=== PATIENT | female | born 1990 | race Caucasian/White ===

== ENCOUNTER 2020-01-19 21:07 | Emergency (ER) | payer MEDICAID, SELFPAY ==
[2020-01-19 21:09] VITALS: BP 96/58; PULSE 121; RESP 14; TEMP 37.3; O2SAT 96; BMI 19.3
[2020-01-19 22:09] LABS: Bacteria 0 SEEN /hpf (None Seen); Mucous, Urine 0 SEEN /hpf (<or=2+); Red Blood Cells-Urine 0 SEEN /hpf (0-5); Squamous Epithelial Cells - UA 0 SEEN /hpf (5-10); White Blood Cells 0 SEEN /hpf (0-5)
[2020-01-19 22:10] LABS: Color, Urine Yellow (Yellow); Glucose, Dipstick Normal (Normal); Ketone-Dipstick Negative (Negative); Leukocyte Esterase-Dipstick Negative /ul (Negative); Nitrite-Dipstick Negative (Negative); Occult Blood-Urine Negative /ul (Negative); Protein-Dipstick Negative (Negative); Specific Gravity, Urine 1.005 (1.002-1.030); Urine Bilirubin Dipstick Negative (Negative); Urine Clarity Clear (Clear); Urine Urobilinogen Normal (Normal); Urine pH 6.5 (5.0 - 8.0)
[2020-01-19] MEDS: Naproxen 500 MG Tablet PO (22:12)
[2020-01-19 22:23] LABS: Internal QC Validated? YES +Cl - CLEAR BKGD; Pregnancy, Urine Negative Negative
--- NOTE | 2020-01-19 23:04 | ED.RN ---
PT ADMITS TO HAVING OCCASIONAL BOUTS OF DEPRESSION, DENIES CURRENT SUICIDAL THOUGHTS.
--- NOTE | 2020-01-19 23:14 | ED.DCSUM_ITS ---
History of Present Illness Chief Complaint: Ear Problem Detail of Chief Complaint: Ear pain, abdominal cramping, feet hurt Informant: Patient Onset: Days Narrative: Patient presents with multiple complaints. Patient presents with right ear pain for the past 2 or 3 days. She has had some recent cold symptoms and reports having a low-grade fever. She reports cough but no sputum. She does report some wheezing. She is a smoker. She also complains of some abdominal cramping that is been intermittent. Her last menstrual cycle was in late December. She does have a history of ovarian cyst but does not believe this pain feels similar. She denies dysuria or hematuria. She also states both of her feet hurt. She states that been walking a lot as she is currently homeless and trying to find a place to live. She has been staying at the [facility]. - Past Medical History (1) Smoker Status: Chronic Comment: F17.200 Past Medical History - Allergies and Home Meds Allergies/Adverse Reactions: Allergies clindamycin HCl [From Cleocin] Adverse Reaction (Verified 01/19/20 21:08) Swelling clindamycin palmitate HCl [From Cleocin] Adverse Reaction (Verified 01/19/20 21:08) Swelling clindamycin phosphate [From Cleocin] Adverse Reaction (Verified 01/19/20 21:08) Swelling Prior records reviewed: Yes Lives: Homeless Smoking Status: Current every day smoker Review of Systems General: Reports: Fever, Subjective. Denies: Chills Eyes: Denies: Visual changes - bilaterally ENT: Reports: Right ear pain. Denies: Rhinorrhea, Sore throat Cardiovascular: Denies: Chest pain Respiratory: Reports: Cough. Denies: Dyspnea, Sputum Gastrointestinal: Denies: Abdominal pain, Nausea, Vomiting, Diarrhea Genitourinary: Denies: Dysuria Musculoskeletal: Reports: Extremity Pain. Denies: Neck pain, Back pain Skin: Denies: Rash Neurological: Denies: Headache Hematologic: Denies: Easy bruising Physical Exam Vital Signs/Narrative: Vital Signs Temp Pulse Resp BP Pulse Ox 01/19/20 21:09 99.1 F 121 H 14 96/58 L 96 Inital Vital Signs reviewed: Yes General: Well nourished, Well developed Head: Normocephalic Eyes: Perrl, EOMI ENT: Moist mucous membranes, TM's clear Neck: Supple Cardiovascular: Regular rate, Regular rhythm Respiratory: No distress, CTA bilaterally Abdomen: Soft, Nontender, Normal bowel sounds Back: Nontender Extremities: Nontender Skin: Normal color Neurological: Alert, Oriented x3 Psychological: Normal affect Diagnostic/Tx/Re-eval Laboratory Results 01/19/20 01/19/20 21:50 21:50 Urine Color Yellow Urine Clarity Clear Urine pH 6.5 Ur Specific [place] 1.005 Urine Protein Negative Urine Glucose (UA) Normal Urine Ketones Negative Urine Occult Blood Negative Urine Nitrite Negative Urine Bilirubin Negative Urine Urobilinogen Normal Ur Leukocyte Esterase Negative Urine RBC 0 SEEN Urine WBC 0 SEEN Ur Squamous Epith Cells 0 SEEN Urine Bacteria 0 SEEN Urine Mucus 0 SEEN Urine Test Negative - Medical Decision Making Patient was given naproxen for pain. On repeat evaluation she is resting comfortably. Test results are discussed with her. She will be instructed to take Tylenol or ibuprofen as needed for pain. ED Disposition - Plan for ED Patient: Disposition: Home or Assisted Living Diagnosis: URI (upper respiratory infection) Instructions: URI, Viral, No Abx (Adult)
[2020-01-20 00:03] VITALS: PULSE 115; RESP 19; O2SAT 97
== END 2020-01-20 00:05 | disposition home or self-care (01) ==
PROVIDERS: Emergency Provider Emergency Medicine; PCP Family Medicine
DX: J06.9 Acute upper respiratory infection, unspecified (principal); R10.9 Unspecified abdominal pain; H92.01 Otalgia, right ear; F17.200 Nicotine dependence, unspecified, uncomplicated; Z59.0 Homelessness; Z88.1 Allergy status to other antibiotic agents
CPT/HCPCS: 81001; 81025; 99282

== ENCOUNTER 2020-01-23 18:37 | Emergency (ER) | payer MEDICAID, SELFPAY ==
[2020-01-23 18:39] VITALS: BP 106/73; PULSE 95; RESP 16; TEMP 36.6; O2SAT 97; BMI 20.5
--- NOTE | 2020-01-23 18:48 | ED.VISSUMM ---
- ER Visit Summary Date of Service: 01/23/20 Chief Complaint: Visual and auditory hallucinations History of Present Illness: The patient is a 29 F who presents with visual and auditory hallucinations that have been getting worse over the past week. Patient states these wax and wane over the week. Patient states nothing makes it better or worse. Patient does admit to some feelings of depression and hopelessness. Patient denies any changes in her eating and sleeping habits. Patient denies any suicidal or homicidal ideations. Patient denies any suicidal plan. Patient states she hears voices but they are not telling her to do anything. Patient states she knows she is seeing things that are not there but does not specifically say what these hallucinations look like. Physical Examination: Vital signs are stable. Patient is afebrile. Patient is in no acute distress. Oral mucosa is pink and moist. Neck is supple. Trachea is midline. There is no JVD noted. Heart was regular rate and rhythm. Lungs are clear and equal bilaterally. Abdomen is soft. Bowel sounds are normal. There is mild lower abdominal tenderness. There is no rebound or guarding noted. Skin is warm dry. Cranial nerves II through XII are intact. There are no focal motor or sensory deficits noted. Extremities are intact. There is no calf tenderness or edema. Test Results: CBC and basic metabolic profile were obtained were within normal limits. Urinalysis does not show any evidence of urinary tract infection. Serum hCG was negative. Urine tox screen was positive for cannabinoids. Serum alcohol level was normal. Emergency Department Course and Treatment: Case was discussed with social work. She was in to evaluate the patient and felt the patient will be best served in a psychiatric facility. Transfer arrangements were made. Patient will be transferred to psychiatric facility. [place] slip was placed on the chart. Patient understood and was agreeable with the plan. All questions were answered. Disposition: Transfer to psychiatric facility Impression: 1. Depression 2. Visual and auditory hallucinations This note was generated with Bandspeed dictation software. It may contain incorrect words, spelling, and punctuation that were not noted in review of the chart prior to signing ED Disposition - Plan for ED Patient: Disposition: Psychiatric Hospital or Unit Diagnosis: Depression, Hallucinations Referrals: Chi Youssef DO [COURTESY STAFF PHYSICIAN] -
[2020-01-23 18:57] LABS: Color, Urine Yellow (Yellow); Glucose, Dipstick Normal (Normal); Ketone-Dipstick 5 mg/dl (Negative); Leukocyte Esterase-Dipstick Negative /ul (Negative); Nitrite-Dipstick Negative (Negative); Occult Blood-Urine Negative /ul (Negative); Protein-Dipstick Negative (Negative); Urine Clarity Sl. Cloudy (Clear); Urine Urobilinogen 4 mg/dl (Normal)
[2020-01-23 19:04] LABS: Absolute Lymphocyte Count 1.92 X10^3/uL (0.83-4.51); Absolute Neutrophil Count 1.9 X10^3/uL (2.0-7.7); Basophil# 0.01 X10^3/uL; Basophil% 0.2 % (0-1); Eosinophil# 0.01 X10^3/uL; Eosinophils% 0.2 % (0-5); Hematocrit 40.4 % (37-47); Hemoglobin 13.8 g/dL (12.0-15.0); Internal QC Validated? YES +Cl - CLEAR BKGD; Lymphocyte # 1.92 X10^3/ul (4.0); Lymphocyte % 45.9 % (19-41); Mean Corp Hgb Conc 34.2 g/dL (32-36); Mean Corpuscular Hgb 29.6 pg (27.0-32.0); Mean Corpuscular Volume 86.5 fL (81-99); Mean Platelet Vol. 10.8 fl (6.2-12.0); Monocyte# 0.31 X10^3/uL; Monocyte% 7.4 % (0-10); NRBC Flagged by Analyzer 0 % (0-5); Neutrophil # 1.92 X10^3/uL (2.7-7.7); Neutrophil % 46.1 % (47-70); POSITIVE MORPHOLOGY YES; Platelet Count 174 K/mm3 (150-450); RBC Distribution Width CV 11.4 % (11.6-14.6); RBC Distribution Width SD 36.1 fl (35.1-43.9); Red Blood Count 4.67 M/mm3 (4.2-5.4); White Blood Count 4.2 K/mm3 (4.4-11.0)
[2020-01-23 19:09] LABS: Urine Bilirubin Dipstick 1 mg/dL (Negative)
[2020-01-23 19:10] LABS: Bacteria 1+ /hpf (None Seen); Mucous, Urine 1+ /hpf (<or=2+); Red Blood Cells-Urine 0-5 SEEN /hpf (0-5); Squamous Epithelial Cells - UA 5-10 SEEN /hpf (5-10); White Blood Cells 0-5 SEEN /hpf (0-5)
[2020-01-23 19:13] LABS: Amphetamine Urine VISTA NEGATIVE (<1000 ng/mL); Barbiturate Urine VISTA NEGATIVE (< 200 ng/mL); Benzodiazepine Urine VISTA NEGATIVE (< 200 ng/mL); Cocaine Urine VISTA NEGATIVE (< 300 ng/mL); Ecstacy Urine VISTA NEGATIVE (< 500 ng/mL); Methadone Urine VISTA NEGATIVE (< 300 ng/mL); PCP Urine VISTA NEGATIVE (< 25 ng/mL); THC Urine VISTA POSITIVE (< 50 ng/mL); Vista UDS pH Range 6
[2020-01-23 19:15] LABS: Pregnancy, Serum, hCG Quali. NEGATIVE Negative
[2020-01-23 19:18] LABS: Anion Gap 7 (5-15); BUN 9 mg/dL (7-18); BUN/Creat Ratio 12.5 RATIO (10-20); Calcium,Total 8.3 mg/dL (8.5-10.1); Chloride 108 mmol/L (98-107); Creatinine, Serum 0.72 mg/dL (0.55-1.02); EST Glomerular Filtration Rate 102 mL/min (>60); Est Glom Filt Rate - Afr Amer 123 mL/min (>60); Glucose 90 mg/dL (74-106); Potassium 3.2 mmol/L (3.5-5.1); Sodium Level 144 mmol/L (136-145)
[2020-01-23 19:20] LABS: Differential Indicated SCAN CRITERIA MET
[2020-01-23 19:24] LABS: Alcohol, Blood (Medical)-Serum < 3.0 mg/dL
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
--- NOTE | 2020-01-23 19:50 | CM.ED ---
SOCIAL WORK PATIENT GAVE PERMISSION FOR THIS WORKER TO CALL AND SPEAK WITH HER MOTHER, DU REED [phone]. LEFT MESSAGE, AWAITING CALL BACK.
[2020-01-23 19:54] LABS: Differential Comment SCANNED
--- NOTE | 2020-01-23 20:23 | CM.ED ---
SOCIAL WORK REFERRAL FAXED AND CALLED TO [facility]. AWAITING ACCEPTANCE. Melba RESTREPO, CAFE COOK, DURALUMIN MECHANIC.
--- NOTE | 2020-01-23 20:30 | CM.ED ---
SOCIAL WORK RECEIVED CALL BACK FROM PATIENT'S MOTHER, DU. UPDATED ON PATIENT'S STATUS AND REQUESTED INFORMATION ON PATIENT'S MENTAL HEALTH HISTORY. PER DU, IN REGARDS TO AUDITORY AND VISUAL HALLUCINATIONS, THAT IS NOT NORMAL FOR [facility]. MOTHER REPORTS PATIENT WAS ADMITTED TO [facility] AT ONE TIME AFTER BEING FOUND OUT WALKING HALF NAKED. MOTHER REPORTS PATIENT DOES HAVE HISTORY OF METH USE. MOTHER STATES PATIENT WAS STAYING WITH HER BROTHER FOR A FEW DAYS AND THEN BROTHER TOOK HER TO [facility] HIS [place] WOULD NOT ALLOW PATIENT TO STAY IN THE HOME. MOTHER CONCERNED WITH PATIENT'S MENTAL STATUS STATING SHE NEEDS HELP. MOTHER RESIDES IN [place] AND STATES PLANS TO MOVE BACK TO [place] IN A FEW MONTHS. MOTHER FEELS PATIENT WOULD BENEFIT FROM HOSPITALIZATION. CALL TO [facility] TO UPDATE ON THE ABOVE. MOHSEN WAHL, ESOL TEACHER.
--- NOTE | 2020-01-23 20:55 | CM.ED ---
SOCIAL WORK CALL FROM [facility], PATIENT ACCEPTED BY DR. KEATING TO THE ABU. NURSE TO CALL REPORT TO . [employer] TO SET UP TRANSPORT. COPY OF P[employer] SLIP TO BE FAXED PER REQUEST. Melba RESTREPO, MIXER OPERATOR RAW SALT, STEREOTYPER HELPER.
[2020-01-23 21:27] VITALS: BP 109/71; PULSE 81; RESP 16; O2SAT 99
== END 2020-01-23 21:51 ==
PROVIDERS: Emergency Provider Emergency Medicine
DX: F32.9 Major depressive disorder, single episode, unspecified (principal); F41.9 Anxiety disorder, unspecified; R44.0 Auditory hallucinations; R44.1 Visual hallucinations; Z72.0 Tobacco use
CPT/HCPCS: 80048; 80307; 80320; 81001; 84703; 85025; 99285; G0480

== ENCOUNTER 2020-10-11 13:01 | Emergency (ER) | payer MEDICAID, SELFPAY ==
[2020-10-11 13:02] VITALS: BP 118/92; PULSE 142; TEMP 36.6; BMI 20.7
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
[2020-10-11 13:31] LABS: Absolute Lymphocyte Count 2.35 X10^3/uL (0.83-4.51); Absolute Neutrophil Count 10.3 X10^3/uL (2.0-7.7); Basophil# 0.03 X10^3/uL; Basophil% 0.2 % (0-1); Eosinophil# 0.01 X10^3/uL; Eosinophils% 0.1 % (0-5); Hematocrit 38.9 % (37-47); Hemoglobin 13.7 g/dL (12.0-15.0); Lymphocyte # 2.35 X10^3/ul (4.0); Lymphocyte % 17.2 % (19-41); Mean Corp Hgb Conc 35.2 g/dL (32-36); Mean Corpuscular Hgb 29.7 pg (27.0-32.0); Mean Corpuscular Volume 84.2 fL (81-99); Mean Platelet Vol. 11.1 fl (6.2-12.0); Monocyte# 0.99 X10^3/uL; Monocyte% 7.2 % (0-10); NRBC Flagged by Analyzer 0 % (0-5); Neutrophil # 10.26 X10^3/uL (2.7-7.7); Platelet Count 320 K/mm3 (150-450); RBC Distribution Width CV 11.9 % (11.6-14.6); Red Blood Count 4.62 M/mm3 (4.2-5.4); White Blood Count 13.7 K/mm3 (4.4-11.0)
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
[2020-10-11 13:55] LABS: Internal QC Validated? YES +Cl - CLEAR BKGD; Pregnancy, Serum, hCG Quali. NEGATIVE Negative
[2020-10-11 14:00] LABS: Anion Gap 7 (5-15); BUN 21 mg/dL (7-18); BUN/Creat Ratio 21.1 RATIO (10-20); Calcium,Total 9.5 mg/dL (8.5-10.1); Chloride 104 mmol/L (98-107); Creatinine, Serum 0.99 mg/dL (0.55-1.02); EST Glomerular Filtration Rate 70 mL/min (>60); Est Glom Filt Rate - Afr Amer 84 mL/min (>60); Glucose 78 mg/dL (74-106); Potassium 3.5 mmol/L (3.5-5.1); Sodium Level 138 mmol/L (136-145)
[2020-10-11] MEDS: LORazepam 2 MG/ML Syringe IM (14:04)
[2020-10-11] MEDS: Ziprasidone IM 20 MG/ML VIAL IM (14:05)
[2020-10-11 14:11] LABS: Alcohol, Blood (Medical)-Serum < 3.0 mg/dL
[2020-10-11 15:27] LABS: Mucous, Urine 0 SEEN /hpf (<or=2+); Red Blood Cells-Urine 0 SEEN /hpf (0-5); White Blood Cells 0 SEEN /hpf (0-5)
[2020-10-11 15:30] VITALS: BP 120/109; PULSE 87; RESP 16; O2SAT 96
[2020-10-11 15:33] LABS: Color, Urine Yellow (Yellow); Glucose, Dipstick Normal (Normal); Ketone-Dipstick 50 mg/dl (Negative); Leukocyte Esterase-Dipstick 25 /ul (Negative); Nitrite-Dipstick Negative (Negative); Occult Blood-Urine Negative /ul (Negative); Protein-Dipstick 15 mg/dl (Negative); Urine Bilirubin Dipstick Negative (Negative); Urine Clarity Clear (Clear); Urine Urobilinogen Normal (Normal)
[2020-10-11 15:57] LABS: Amphetamine Urine VISTA POSITIVE (<1000 ng/mL); Barbiturate Urine VISTA NEGATIVE (< 200 ng/mL); Benzodiazepine Urine VISTA NEGATIVE (< 200 ng/mL); Cocaine Urine VISTA NEGATIVE (< 300 ng/mL); Ecstacy Urine VISTA POSITIVE (< 500 ng/mL); Methadone Urine VISTA NEGATIVE (< 300 ng/mL); PCP Urine VISTA NEGATIVE (< 25 ng/mL); THC Urine VISTA POSITIVE (< 50 ng/mL); Vista UDS pH Range 5
[2020-10-11 16:00] VITALS: BP 102/72; PULSE 81; RESP 16; O2SAT 95
--- NOTE | 2020-10-11 16:08 | CM.ED ---
Social Work Patient medically cleared per Dr. Brandt. Telephone call to [facility] [place]. Referral made. Clinical information faxed. [facility] reports that [facility] has open beds. Denise CONNOLLY, ELICIA
--- NOTE | 2020-10-11 16:39 | NURSING ---
ACCEPTED AT [facility]
[2020-10-11 16:40] LABS: Bacteria 4+ /hpf (None Seen); Squamous Epithelial Cells - UA 0-5 SEEN /hpf (5-10)
--- NOTE | 2020-10-11 16:46 | NURSING ---
[facility] ETA IS 90 MIN
--- NOTE | 2020-10-11 16:56 | CM.ED ---
[facility] by Dr. Man and is to admit to the due diagnosis unit. Nurse to call report to [phone]. Medical team and patient updated. [place] faxed to [facility]. Denise CONNOLLY, ELICIA
[2020-10-11 18:00] VITALS: BP 100/77; PULSE 71; RESP 14; TEMP 36.9; O2SAT 100
[2020-10-11 19:00] VITALS: BP 100/77; PULSE 74; RESP 16; O2SAT 95
== END 2020-10-11 20:00 ==
LOC: ED 13:41
PROVIDERS: Emergency Provider Emergency Medicine
DX: F31.9 Bipolar disorder, unspecified (principal); F41.9 Anxiety disorder, unspecified; F15.10 Other stimulant abuse, uncomplicated; R45.851 Suicidal ideations; F17.200 Nicotine dependence, unspecified, uncomplicated; Z91.19 Patient's noncompliance with other medical treatment and regimen; Z79.899 Other long term (current) drug therapy
CPT/HCPCS: 80048; 80307; 80320; 81001; 84703; 85025; 87426; 96372; 99285; G0480; J3486

== ENCOUNTER 2021-11-20 19:22 | Emergency (ER) | payer MEDICAID, SELFPAY ==
[2021-11-20 19:22] VITALS: BP 107/85; PULSE 107; RESP 16; TEMP 36.3; O2SAT 99; BMI 22.2
--- NOTE | 2021-11-20 20:18 | ED.RN ---
Doctor in with patient and says she is here because she does not feel well. Now patient states she is hearing and seeing things and smoked meth today, which is different from what she told this nurse.
[2021-11-20 20:27] LABS: Bacteria 0 SEEN /hpf (None Seen); Mucous, Urine 0 SEEN /hpf (<or=2+); Red Blood Cells-Urine 0 SEEN /hpf (0-5); White Blood Cells 0 SEEN /hpf (0-5)
--- NOTE | 2021-11-20 20:28 | EDS_ITS ---
HPI History of Present Illness Chief Complaint: Suicidal Informant: patient Narrative Narrative: 31-year-old female states that she is feeling depressed and is having auditory and visual hallucinations. She is an active methamphetamine user. She states that a loose Nations have been present only for couple of days. When asked what is she feeling depressed about she states that she really does not know. I asked her if she seen anybody for it she says yes but then does not understand what I am meeting by you she is seeing a counselor or therapist etc. she told me she did not have a specific plan but told nursing and triage that she considered cutting or overdosing [facility] Medical History (Updated 11/20/21 @ 21:[address] Juno Curran, DO) Methamphetamine abuse Home Medications NK 11/20/21 [History Last Taken Unknown] Allergy/AdvReac Type Severity Reaction Status Date / Time clindamycin HCl AdvReac Swelling Verified 11/20/21 19:27 [From Cleocin] clindamycin palmitate HCl AdvReac Swelling Verified 11/20/21 19:27 [From Cleocin] clindamycin phosphate AdvReac Swelling Verified 11/20/21 19:27 [From Cleocin] Social History Smoking Status: Current some day smoker tobacco type: cigarettes ROS ROS ED Constitutional Constitutional ED: Denies chills or weight loss Eyes Eyes: Denies change in vision or diplopia ENT ENT ED: Denies ear pain, rhinorrhea or sore throat Cardiovascular Cardiovascular: Denies chest pain, orthopnea, palpitations or racing heartbeat Respiratory/Chest Respiratory/Chest: Denies cough, dyspnea or orthopnea Gastrointestinal Gastrointestinal: Denies abdominal pain, diarrhea, nausea or vomiting Genitourinary Genitourinary ED: Denies dysuria, hematuria or urinary frequency Musculoskeletal Musculoskeletal: Denies arthralgias or myalgias Integumentary Denies abscess or rash Neurologic Neurologic: Denies headache(s) or weakness Psychiatric Psychiatric: Reports auditory hallucinations, depression, suicidal thoughts and visual hallucinations; Denies anxiety or suicidal ideation Endocrine Endocrinology: Denies polydipsia, polyphagia or polyuria Allergic/Immunologic Allergic/Immunologic ED: Denies mouth swelling, tongue swelling or urticaria EXAM Physical Exam Const Vital Signs: 11/20/21 19:22 11/20/21 20:42 11/20/21 21:38 Temperature 97.4 F L Temperature Source Temporal Pulse Rate 107 H Respiratory Rate 16 17 17 Blood Pressure 107/85 H Blood Pressure Mean 92 Pulse Ox 99 Oxygen Delivery Method Room Air Positive well nourished and well developed General Appearance ED: well developed HEENT Reports normocephalic, head/scalp atraumatic and moist mucous membranes Eyes PERRL and EOMs intact bilaterally Neck no lymphadenopathy, supple and no JVD Resp normal respiratory effort and clear to auscultation bilaterally Cardio regular rate, regular rhythm and no murmurs GI normal to inspection, nondistended, normoactive bowel sounds and non-tender Palpation: soft Back/Spine no CVA tenderness and normal ROM Extremity normal to inspection General Extremety ED: Negative for edema General Extremity: Negative for edema Neuro oriented x3 and CN's II-XII intact bilaterally Neuro Narrative: Patient having tics and unable to sit still. Sensorium / Orientation: alert Motor Exam: strength 5/5 throughout Psych Psych Narrative: Patient admitting to auditory and visual hallucinations. She admits to being suicidal but does not know why Mood & Affect: depressed; Negative for tearful Thought Content: suicidality Skin no rashes or lesions noted and no wounds MDM MDM MDM Narrative Medical decision making narrative: Patient was more forthcoming with case management. She is telling them about her suicidal ideation and plan. She is voluntarily asking for psychiatric admission. Lab Data Attestation: I reviewed the patient's lab results. Labs: Laboratory Results - last 24 hr 11/20/21 11/20/21 11/20/21 19:50 19:50 20:08 WBC Cancelled Corrected WBC Cancelled RBC Cancelled Hgb Cancelled Hct Cancelled MCV Cancelled MCH Cancelled MCHC Cancelled RDW Std Deviation Cancelled RDW Coeff of Natasha Cancelled Plt Count Cancelled MPV Cancelled Immature Gran % (Auto) Cancelled Neut % (Auto) Cancelled Lymph % (Auto) Cancelled [place] % (Auto) Cancelled Eos % (Auto) Cancelled Baso % (Auto) Cancelled Absolute Neuts (auto) Cancelled Absolute Lymphs (auto) Cancelled Total Counted Cancelled Neutrophils % (Manual) Cancelled Band Neutrophils % Cancelled Lymphocytes % (Manual) Cancelled Monocytes % (Manual) Cancelled Eosinophils % (Manual) Cancelled Basophils % (Manual) Cancelled Metamyelocytes % Cancelled Myelocytes % Cancelled Promyelocytes % Cancelled Blast Cells % Cancelled Plasma Cell % (Manual) Cancelled Other Cells % Cancelled Nucleated RBC % Cancelled Nucleated RBCs/100 WBC Cancelled Differential Comment Cancelled Diff Path Review Cancelled Hypersegmented Neuts Cancelled Atypical Lymphocytes Cancelled Reactive Lymphocytes Cancelled Smudge Cells Cancelled Toxic Granulation Cancelled Toxic Vacuolation Cancelled Dohle Bodies Cancelled John Rods Cancelled Platelet Estimate Cancelled Plt Morphology Comment Cancelled RBC Morphology Cancelled Polychromasia Cancelled Hypochromasia Cancelled Poikilocytosis Cancelled Basophilic Stippling Cancelled Anisocytosis Cancelled Microcytosis Cancelled Macrocytosis Cancelled Spherocytes Cancelled Sickle Cells Cancelled Target Cells Cancelled Tear Drop Cells Cancelled Ovalocytes Cancelled Stomatocytes Cancelled Wahl-Navarro Bodies Cancelled Lopeno Cells Cancelled Bite Cells Cancelled Crenated Cell Cancelled Acanthocytes (Spur) Cancelled Rouleaux Cancelled Schistocytes Cancelled Sodium Potassium Chloride Carbon Dioxide Anion Gap BUN Creatinine Estim Creat Clear Calc Est GFR (MDRD) Af Amer Est GFR (MDRD) Non-Af BUN/Creatinine Ratio Glucose Calcium Total Bilirubin AST ALT Alkaline Phosphatase Total Protein Albumin Globulin Albumin/Globulin Ratio Urine Color Yellow Urine Clarity Sl. Cloudy Urine pH 7.0 Ur Specific [place] 1.015 Urine Protein Negative Urine Glucose (UA) Normal Urine Ketones 5 H Urine Occult Blood Negative Urine Nitrite Negative Urine Bilirubin Negative Urine Urobilinogen Normal Ur Leukocyte Esterase Negative Urine RBC 0 SEEN Urine WBC 0 SEEN Ur Squamous Epith Cells 0-5 SEEN Amorphous Sediment 1+ Urine Bacteria 0 SEEN Urine Mucus 0 SEEN Urine Test Negative Urine Opiates Screen NEGATIVE Urine Methadone Screen NEGATIVE Ur Barbiturates Screen NEGATIVE Ur Phencyclidine Scrn NEGATIVE Ur Amphetamines Screen POSITIVE H U Methamphetamin-MDMA POSITIVE H U Benzodiazepines Scrn NEGATIVE Urine Cocaine Screen NEGATIVE U Cannabinoids Screen NEGATIVE Ur Drug Screen Comment Ethyl Alcohol 11/20/21 11/20/21 11/20/21 20:08 20:08 21:07 WBC 5.7 Corrected WBC RBC 4.72 Hgb 14.0 Hct 39.5 MCV 83.7 MCH 29.7 MCHC 35.4 RDW Std Deviation 37.9 RDW Coeff of Natasha 12.7 Plt Count 286 MPV 11.5 Immature Gran % (Auto) 0.200 Neut % (Auto) 50.1 Lymph % (Auto) 40.3 [place] % (Auto) 8.8 Eos % (Auto) 0.4 Baso % (Auto) 0.2 Absolute Neuts (auto) 2.8 Absolute Lymphs (auto) 2.28 Total Counted Neutrophils % (Manual) Band Neutrophils % Lymphocytes % (Manual) Monocytes % (Manual) Eosinophils % (Manual) Basophils % (Manual) Metamyelocytes % Myelocytes % Promyelocytes % Blast Cells % Plasma Cell % (Manual) Other Cells % Nucleated RBC % 0 Nucleated RBCs/100 WBC Differential Comment Diff Path Review Hypersegmented Neuts Atypical Lymphocytes Reactive Lymphocytes Smudge Cells Toxic Granulation Toxic Vacuolation Dohle Bodies John Rods Platelet Estimate Plt Morphology Comment RBC Morphology Polychromasia Hypochromasia Poikilocytosis Basophilic Stippling Anisocytosis Microcytosis Macrocytosis Spherocytes Sickle Cells Target Cells Tear Drop Cells Ovalocytes Stomatocytes Wahl-Navarro Bodies [place]o Cells Bite Cells Crenated Cell Acanthocytes (Spur) Rouleaux Schistocytes Sodium 142 Potassium 4.1 Chloride 113 H Carbon Dioxide 25.0 Anion Gap 4 L BUN 18 Creatinine 0.88 Estim Creat Clear Calc 72.96 Est GFR (MDRD) Af Amer 97 Est GFR (MDRD) Non-Af 80 BUN/Creatinine Ratio 20.5 H Glucose 89 Calcium 9.1 Total Bilirubin 0.30 AST 23 ALT 15 Alkaline Phosphatase 76 Total Protein 7.4 Albumin 3.5 Globulin 3.9 Albumin/Globulin Ratio 0.9 Urine Color Urine Clarity Urine pH Ur Specific [place] Urine Protein Urine Glucose (UA) Urine Ketones Urine Occult Blood Urine Nitrite Urine Bilirubin Urine Urobilinogen Ur Leukocyte Esterase Urine RBC Urine WBC Ur Squamous Epith Cells Amorphous Sediment Urine Bacteria Urine Mucus Urine Test Urine Opiates Screen Urine Methadone Screen Ur Barbiturates Screen Ur Phencyclidine Scrn Ur Amphetamines Screen U Methamphetamin-MDMA U Benzodiazepines Scrn Urine Cocaine Screen U Cannabinoids Screen Ur Drug Screen Comment Ethyl Alcohol < 3.0 EKG Initial EKG: Attestation: I personally reviewed and interpreted this EKG as follows: Comments: Normal sinus rhythm with a ventricular rate of 91 bpm. Discharge Plan Triage Chief Complaint: Suicidal ED Provider: Juno Curran Dx/Rx/DC Orders Clinical Impression: Methamphetamine abuse, Depression, Suicidal ideation Prescriptions: No Action NK RF: 0 Primary Care Provider: Care Physician,No Primary Referrals: Care Physician,No Primary [Primary Care Provider] - Disposition Disposition: Psychiatric Hospital or Unit
--- NOTE | 2021-11-20 20:30 | CM.ED ---
SOCIAL WORK ASSESSMENT Referral Source: Dr. Curran Reason for Consult: Suicidal ideation Chief Compliant: Patient presents to [facility] ER for suicidal ideation, substance abuse. Marital/Social History: Single Living Situation: Lives with boyfriend Support/Resources: ?I don?t remember who I see.? History: None Education and Employment History: 8th Grade, unemployed Mental Health Treatment/History: Depression. Patient reports prescribed medication, however, has not been taking medications. Patient unable to recall who she follows with. Triggers/Stressors: fighting with boyfriend, social stressors. Coping Skills: None Abuse Issues: Patient denies any history of emotional, physical, or sexual abuse. Substance Abuse History: Patient admits to use of meth. Last use was earlier today. Risk to Self/Others: Suicidal- Patient admits to suicidal ideation. Patient states ?I would take pills.? Patient denies any prior history of attempts. Homicidal- Patient denies homicidal ideation. Mental Status Exam: Orientation- A&Ox3 Memory: fair Appearance/General Behavior: disheveled, calm Mood/Affect: flat, depressed Communication Pattern: responds to questions Thought Process: auditory hallucinations General Intellectual Functioning: Average Judgement: poor Insight: poor Assessment: Met with patient in room. Introduced role and reason for referral. Patient states has been more depressed lately and is ?fighting with my boyfriend.? Patient reports does not have coping skills and self-medicates with meth. Patient reports last use was earlier today. Patient reports suicidal ideation. Patient believes would benefit from hospitalization. Collaboration with Dr. Curran, plan for inpatient dual diagnosis. This worker to facilitate placement. Plan: Referral to inpatient psych: dual diagnosis Melba Rdz, HRIS MANAGER, [employer]IN [employer]ER
--- NOTE | 2021-11-20 20:35 | EKG12_ITS ---
Test Reason : MENTAL HEALTH Blood Pressure : / mmHG Vent. Rate : 091 BPM Atrial Rate : 091 BPM P-R Int : 144 ms QRS Dur : 082 ms QT Int : 336 ms P-R-T Axes : 067 059 048 degrees QTc Int : 413 ms Normal sinus rhythm Normal ECG Confirmed by SAADIA AMIN, EDWARD ([id number]), editorial project manager CARLENE STEWARD ([id number]) on 11/21/2021 11:12:16 AM Referred By: SAUL Confirmed By:EDWARD ZEE MD
[2021-11-20 20:42] VITALS: RESP 17
[2021-11-20 20:42] LABS: Color, Urine Yellow (Yellow); Glucose, Dipstick Normal (Normal); Ketone-Dipstick 5 mg/dl (Negative); Leukocyte Esterase-Dipstick Negative /ul (Negative); Nitrite-Dipstick Negative (Negative); Occult Blood-Urine Negative /ul (Negative); Protein-Dipstick Negative (Negative); Specific Gravity, Urine 1.015 (1.002-1.030); Urine Bilirubin Dipstick Negative (Negative); Urine Clarity Sl. Cloudy (Clear); Urine Urobilinogen Normal (Normal)
[2021-11-20 20:52] LABS: Amorphous Sediment 1+; Squamous Epithelial Cells - UA 0-5 SEEN /hpf (5-10)
[2021-11-20 20:53] LABS: Internal QC Validated? YES +Cl - CLEAR BKGD; Pregnancy, Urine Negative Negative
[2021-11-20 20:57] LABS: ALB/GLOB Ratio 0.9 RATIO (0.9-2.4); AST(SGOT) 23 U/L (15-37); Alanine Aminotransfer ALT/SGPT 15 U/L (13-56); Albumin, Serum 3.5 g/dL (3.2-5.0); Alkaline Phosphatase 76 U/L (45-117); Anion Gap 4 (5-15); BUN 18 mg/dL (7-18); BUN/Creat Ratio 20.5 RATIO (10-20); Calcium,Total 9.1 mg/dL (8.5-10.1); Chloride 113 mmol/L (98-107); Creatinine, Serum 0.88 mg/dL (0.55-1.02); EST Glomerular Filtration Rate 80 mL/min (>60); Est Glom Filt Rate - Afr Amer 97 mL/min (>60); Estimated Creatinine Clearance 72.96 ml/min; Globulin 3.9 g/dL (2.2-4.2); Glucose 89 mg/dL (74-106); Potassium 4.1 mmol/L (3.5-5.1); Protein, Total 7.4 g/dL (6.4-8.2); Sodium Level 142 mmol/L (136-145)
[2021-11-20 21:22] LABS: Amphetamine Urine VISTA POSITIVE (<1000 ng/mL); Barbiturate Urine VISTA NEGATIVE (< 200 ng/mL); Benzodiazepine Urine VISTA NEGATIVE (< 200 ng/mL); Cocaine Urine VISTA NEGATIVE (< 300 ng/mL); Ecstacy Urine VISTA POSITIVE (< 500 ng/mL); Methadone Urine VISTA NEGATIVE (< 300 ng/mL); PCP Urine VISTA NEGATIVE (< 25 ng/mL); THC Urine VISTA NEGATIVE (< 50 ng/mL); Vista UDS pH Range 7
[2021-11-20 21:29] LABS: Alcohol, Blood (Medical)-Serum < 3.0 mg/dL
--- NOTE | 2021-11-20 21:36 | CM.ED ---
SOCIAL WORK Referral faxed and called to [facility]. Pending review at this time. Melba Rdz, GRINDING MACHINE OPERATOR AUTOMATIC, SHEEP AND WHEAT FARMER
[2021-11-20 21:38] VITALS: RESP 17
[2021-11-20 21:51] LABS: Absolute Lymphocyte Count 2.28 X10^3/uL (0.83-4.51); Absolute Neutrophil Count 2.8 X10^3/uL (2.0-7.7); Basophil# 0.01 X10^3/uL; Basophil% 0.2 % (0-1); Eosinophil# 0.02 X10^3/uL; Eosinophils% 0.4 % (0-5); Hematocrit 39.5 % (37-47); Lymphocyte # 2.28 X10^3/ul (0.83-4.51); Lymphocyte % 40.3 % (19-41); Mean Corp Hgb Conc 35.4 g/dL (32-36); Mean Corpuscular Hgb 29.7 pg (27.0-32.0); Mean Corpuscular Volume 83.7 fL (81-99); Mean Platelet Vol. 11.5 fl (6.2-12.0); Monocyte% 8.8 % (0-10); NRBC Flagged by Analyzer 0 % (0-5); Neutrophil # 2.84 X10^3/uL (2.7-7.7); Neutrophil % 50.1 % (47-70); Platelet Count 286 K/mm3 (150-450); RBC Distribution Width CV 12.7 % (11.6-14.6); RBC Distribution Width SD 37.9 fl (35.1-43.9); Red Blood Count 4.72 M/mm3 (4.2-5.4); White Blood Count 5.7 K/mm3 (4.4-11.0)
[2021-11-20 22:38] VITALS: RESP 16
[2021-11-20 23:16] LABS: CPK Total, Creatine Kinase 93 U/L (26-192)
[2021-11-21 00:29] VITALS: BP 114/78; PULSE 78; RESP 17; TEMP 36.6; O2SAT 98
[2021-11-21 01:02] VITALS: RESP 17
[2021-11-21 01:04] VITALS: BP 118/80; PULSE 17; RESP 17; TEMP 36.7; O2SAT 97
[2021-11-21 01:10] VITALS: BP 118/80; PULSE 78; RESP 17; TEMP 36.7; O2SAT 97
[2021-11-21 02:36] VITALS: RESP 19
== END 2021-11-21 02:44 ==
PROVIDERS: Emergency Provider Emergency Medicine; Visit Provider Emergency Medicine
DX: F15.10 Other stimulant abuse, uncomplicated (principal); F32.A Depression, unspecified; R45.851 Suicidal ideations; F17.210 Nicotine dependence, cigarettes, uncomplicated
CPT/HCPCS: G0480; 80053; 80307; 81001; 81025; 82077; 82550; 85025; 87426; 93005; 99285

== ENCOUNTER 2022-09-30 11:57 | Emergency (ER) | payer MEDICAID, SELFPAY ==
[2022-09-30 12:03] VITALS: BP 138/109; PULSE 134; RESP 26; TEMP 36.3; O2SAT 97; BMI 27.8
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
[2022-09-30] MEDS: LORazepam 2 MG/ML Syringe 1 MG IM (12:30)
[2022-09-30] MEDS: 0.9% Normal Saline 1,000 ML 999 ML IV (12:53)
[2022-09-30 12:59] LABS: Mucous, Urine 0 SEEN /hpf (<or=2+)
[2022-09-30 13:02] LABS: Absolute Lymphocyte Count 2.66 X10^3/uL (0.83-4.51); Absolute Neutrophil Count 7.6 X10^3/uL (2.0-7.7); Basophil# 0.02 X10^3/uL; Basophil% 0.2 % (0-1); Eosinophil# 0.02 X10^3/uL; Eosinophils% 0.2 % (0-5); Hematocrit 45.3 % (37-47); Hemoglobin 16.4 g/dL (12.0-15.0); Lymphocyte # 2.66 X10^3/ul (0.83-4.51); Mean Corp Hgb Conc 36.2 g/dL (32-36); Mean Corpuscular Hgb 30.7 pg (27.0-32.0); Mean Corpuscular Volume 84.7 fL (81-99); Mean Platelet Vol. 11.2 fl (6.2-12.0); Monocyte# 0.76 X10^3/uL; Monocyte% 6.8 % (0-10); NRBC Flagged by Analyzer 0 % (0-5); Neutrophil # 7.58 X10^3/uL (2.7-7.7); Neutrophil % 68.3 % (47-70); Platelet Count 371 K/mm3 (150-450); RBC Distribution Width CV 12.1 % (11.6-14.6); RBC Distribution Width SD 37.2 fl (35.1-43.9); Red Blood Count 5.35 M/mm3 (4.2-5.4); White Blood Count 11.1 K/mm3 (4.4-11.0)
[2022-09-30 13:03] LABS: Color, Urine Amber (Yellow); Glucose, Dipstick Normal (Normal); Ketone-Dipstick 50 mg/dl (Negative); Leukocyte Esterase-Dipstick 25 /ul (Negative); Nitrite-Dipstick Negative (Negative); Occult Blood-Urine 10 /ul (Negative); Protein-Dipstick 30 mg/dl (Negative); Urine Clarity Sl. Cloudy (Clear); Urine Urobilinogen 4 mg/dl (Normal)
[2022-09-30 13:06] LABS: Urine Bilirubin Dipstick 1 mg/dL (Negative)
[2022-09-30 13:12] LABS: Internal QC Validated? YES +Cl - CLEAR BKGD; Pregnancy, Serum, hCG Quali. NEGATIVE Negative
[2022-09-30 13:18] LABS: Bacteria 1+ /hpf (None Seen); Red Blood Cells-Urine 0-5 SEEN /hpf (0-5); Squamous Epithelial Cells - UA 0-5 SEEN /hpf (5-10); White Blood Cells 0-5 SEEN /hpf (0-5)
[2022-09-30 13:24] LABS: Amphetamine Urine VISTA POSITIVE (<1000 ng/mL); Barbiturate Urine VISTA NEGATIVE (< 200 ng/mL); Benzodiazepine Urine VISTA NEGATIVE (< 200 ng/mL); Cocaine Urine VISTA NEGATIVE (< 300 ng/mL); Ecstacy Urine VISTA POSITIVE (< 500 ng/mL); Methadone Urine VISTA NEGATIVE (< 300 ng/mL); PCP Urine VISTA NEGATIVE (< 25 ng/mL); THC Urine VISTA POSITIVE (< 50 ng/mL); Vista UDS pH Range 5
[2022-09-30 13:28] LABS: AST(SGOT) 15 U/L (15-37); Alanine Aminotransfer ALT/SGPT 25 U/L (13-56); Albumin, Serum 4.4 g/dL (3.2-5.0); Alkaline Phosphatase 93 U/L (45-117); Anion Gap 12 (5-15); BUN 15 mg/dL (7-18); BUN/Creat Ratio 12.5 RATIO (10-20); Calcium,Total 9.7 mg/dL (8.5-10.1); Chloride 103 mmol/L (98-107); EST Glomerular Filtration Rate 55 mL/min (>60); Est Glom Filt Rate - Afr Amer 67 mL/min (>60); Estimated Creatinine Clearance 66.51 ml/min; Globulin 4.5 g/dL (2.2-4.2); Glucose 104 mg/dL (74-106); Potassium 3.1 mmol/L (3.5-5.1); Protein, Total 8.9 g/dL (6.4-8.2); Sodium Level 136 mmol/L (136-145)
[2022-09-30 13:33] LABS: Alcohol, Blood (Medical)-Serum < 3.0 mg/dL
[2022-09-30] MEDS: Potassium Chloride Oral Tablet 20 MEQ 40 MEQ PO (13:45)
[2022-09-30 13:53] VITALS: BP 128/71; PULSE 120; RESP 18; O2SAT 99
== END 2022-09-30 13:57 | disposition home or self-care (01) ==
PROVIDERS: Nurse Practitioner; Emergency Provider Emergency Medicine; Visit Provider Emergency Medicine
DX: F41.9 Anxiety disorder, unspecified (principal); F15.10 Other stimulant abuse, uncomplicated; E87.6 Hypokalemia; F32.A Depression, unspecified; F17.210 Nicotine dependence, cigarettes, uncomplicated; F17.290 Nicotine dependence, other tobacco product, uncomplicated; Z79.899 Other long term (current) drug therapy
CPT/HCPCS: 81001; 84703; 80320; 80053; 80307; 84443; 85025; 82077; J7030; A4216

== ENCOUNTER 2022-09-30 16:47 | Emergency (ER) | payer MEDICAID, SELFPAY ==
[2022-09-30] VITALS (7 sets, daily range): BP systolic 149–161; BP diastolic 88–136; PULSE 112–152; RESP 14–18; TEMP 36.7; O2SAT 97–99; BMI 28.3
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
--- NOTE | 2022-09-30 17:49 | EKG12_ITS ---
Test Reason : Blood Pressure : / mmHG Vent. Rate : 114 BPM Atrial Rate : 114 BPM P-R Int : 130 ms QRS Dur : 076 ms QT Int : 328 ms P-R-T Axes : 042 052 020 degrees QTc Int : 452 ms Sinus tachycardia Otherwise normal ECG Confirmed by NIC AMIN, ASA ([id number]), general expeditor CHU LEVINE ([id number]) on 10/02/2022 11:24:22 AM Referred By: Confirmed By:ASA LUCERO MD
[2022-09-30] MEDS: LORazepam 1 MG Tablet PO (19:01)
[2022-09-30 19:19] LABS: Alcohol, Blood (Medical)-Serum < 3.0 mg/dL
--- NOTE | 2022-09-30 19:35 | ED.RN ---
Pts mother and grandmother calling in requesting an updated. Pt giving permission to give them an update and information. Updated and all questions answered. Mom Ester requesting to be updated at [phone].
[2022-09-30 23:45] LABS: Absolute Neutrophil Count 7.3 X10^3/uL (2.0-7.7); Basophil# 0.02 X10^3/uL; Basophil% 0.2 % (0-1); Eosinophil# 0.05 X10^3/uL; Eosinophils% 0.4 % (0-5); Hematocrit 37.4 % (37-47); Hemoglobin 13.4 g/dL (12.0-15.0); Lymphocyte % 29.5 % (19-41); Mean Corp Hgb Conc 35.8 g/dL (32-36); Mean Corpuscular Hgb 30.6 pg (27.0-32.0); Mean Corpuscular Volume 85.4 fL (81-99); Mean Platelet Vol. 11.2 fl (6.2-12.0); Monocyte# 1.13 X10^3/uL; Monocyte% 9.3 % (0-10); NRBC Flagged by Analyzer 0 % (0-5); Neutrophil # 7.34 X10^3/uL (2.7-7.7); Neutrophil % 60.1 % (47-70); Platelet Count 321 K/mm3 (150-450); RBC Distribution Width SD 37.2 fl (35.1-43.9); Red Blood Count 4.38 M/mm3 (4.2-5.4); White Blood Count 12.2 K/mm3 (4.4-11.0)
[2022-09-30 23:59] LABS: Anion Gap 9 (5-15); BUN 17 mg/dL (7-18); BUN/Creat Ratio 15.2 RATIO (10-20); CPK Total, Creatine Kinase 755 U/L (26-192); Calcium,Total 9.2 mg/dL (8.5-10.1); Chloride 106 mmol/L (98-107); Creatinine, Serum 1.12 mg/dL (0.55-1.02); EST Glomerular Filtration Rate 60 mL/min (>60); Est Glom Filt Rate - Afr Amer 73 mL/min (>60); Estimated Creatinine Clearance 72.29 ml/min; Glucose 99 mg/dL (74-106); Potassium 3.2 mmol/L (3.5-5.1); Sodium Level 142 mmol/L (136-145)
[2022-10-01] VITALS (7 sets, daily range): BP systolic 86; BP diastolic 58; PULSE 95; RESP 12–16; TEMP 36.7; O2SAT 96
[2022-10-01 00:04] LABS: Mucous, Urine 0 SEEN /hpf (<or=2+)
--- NOTE | 2022-10-01 00:05 | ED.RN ---
Pt pacing all over the room, into the hallways and the bathroom numerous times. Pulling paper towels out of dispenser, spilling water all over the floor, screaming out. Dr. Navarrete updated.
[2022-10-01 00:09] LABS: Internal QC Validated? YES +Cl - CLEAR BKGD; Pregnancy, Urine Negative Negative
[2022-10-01] MEDS: Ziprasidone IM 20 MG/ML VIAL IM (00:10)
[2022-10-01 00:13] LABS: Bacteria 1+ /hpf (None Seen); Color, Urine Amber (Yellow); Glucose, Dipstick Normal (Normal); Ketone-Dipstick 5 mg/dl (Negative); Leukocyte Esterase-Dipstick 25 /ul (Negative); Nitrite-Dipstick Negative (Negative); Occult Blood-Urine 250 /ul (Negative); Protein-Dipstick 30 mg/dl (Negative); Squamous Epithelial Cells - UA 0-5 SEEN /hpf (5-10); Urine Bilirubin Dipstick Negative (Negative); Urine Clarity Sl. Cloudy (Clear); Urine Urobilinogen 1 mg/dl (Normal); White Blood Cells 0-5 SEEN /hpf (0-5)
[2022-10-01 00:14] LABS: Red Blood Cells-Urine 0-5 SEEN /hpf (0-5)
--- NOTE | 2022-10-01 00:15 | ED.RN ---
Nicotine patch applied to left deltoid.
== END 2022-10-01 08:35 ==
PROVIDERS: Emergency Medicine; Nurse Practitioner; Emergency Provider Emergency Medicine; Visit Provider Emergency Medicine
DX: F32.A Depression, unspecified (principal); F15.10 Other stimulant abuse, uncomplicated; F41.9 Anxiety disorder, unspecified; E87.6 Hypokalemia; R45.851 Suicidal ideations; F17.210 Nicotine dependence, cigarettes, uncomplicated; F17.290 Nicotine dependence, other tobacco product, uncomplicated; Z79.899 Other long term (current) drug therapy; Z91.51 Personal history of suicidal behavior
CPT/HCPCS: 36415; 80048; 80053; 80307; 81001; 81025; 82077; 82550; 84443; 84703; 85025; 87811; 93005; 96360; 96372; 99284; 99285; J7030; A4216; J3486

== ENCOUNTER → 2023-02-12 | Outpatient (CLI) | payer MEDICAID, SELFPAY ==
[2023-02-12 17:00] LABS: ALB/GLOB Ratio 1.2 RATIO (0.9-2.4); AST(SGOT) 14 U/L (15-37); Alanine Aminotransfer ALT/SGPT 16 U/L (13-56); Albumin, Serum 4.1 g/dL (3.2-5.0); Alkaline Phosphatase 64 U/L (45-117); Anion Gap 5 (5-15); BUN 10 mg/dL (7-18); BUN/Creat Ratio 14.5 RATIO (10-20); Calcium,Total 8.9 mg/dL (8.5-10.1); Chloride 108 mmol/L (98-107); Creatinine, Serum 0.69 mg/dL (0.55-1.02); EST Glomerular Filtration Rate 104 mL/min (>60); Est Glom Filt Rate - Afr Amer 126 mL/min (>60); Globulin 3.3 g/dL (2.2-4.2); Glucose 88 mg/dL (74-106); Potassium 3.6 mmol/L (3.5-5.1); Protein, Total 7.4 g/dL (6.4-8.2); Sodium Level 138 mmol/L (136-145)
[2023-02-12 20:16] LABS: HIV - WCH Non-Reactive (Nonreactive)
== END | disposition home or self-care (01) ==
LOC: BIMLAB 14:18
PROVIDERS: PCP Internal Medicine; Referring Provider Internal Medicine; Visit Provider Internal Medicine
DX: B19.20 Unspecified viral hepatitis C without hepatic coma (principal); F19.11 Other psychoactive substance abuse, in remission
CPT/HCPCS: 36415; 80053; 80074; 86703; 87522; 87902

== ENCOUNTER 2023-03-26 13:59 | Emergency (ER) | payer MEDICAID, SELFPAY ==
[2023-03-26 14:00] VITALS: BP 101/64; PULSE 97; RESP 18; TEMP 35.8; O2SAT 98; BMI 26.9
--- NOTE | 2023-03-26 14:14 | EDS_ITS ---
HPI History of Present Illness Chief Complaint: Dental Informant: patient Onset/Context/Timing Onset: Days Context: Gradual Onset Timing: Continuous Current Severity: Mild Maximum Severity: Mild Relieved by: NSAIDs Associated Symptoms Assocated Symptom - Dental: jaw swelling and cold sensitivity Narrative Narrative: 32-year-old female history of hepatitis C and methamphetamine abuse. States that she has multiple dental caries, decay and missing teeth. She has seen a dentist but they do not take her insurance because the plan is to remove her teeth and give her dentures and possible plates. She states for last 4 days her left lower jaw has been uncomfortable with mild swelling. No fever. No trouble swallowing or breathing. She was previously on Z-Manish. She has been on no recent antibiotics. Prior similar symptoms: Yes Recent Illness/Hospitalization: No PFSH PFSH Medical History Anxiety Chronic osteomyelitis of maxilla Chronic ulcer of other specified site Hepatitis C Methamphetamine abuse Home Medications penicillin V potassium 500 mg tablet 500 mg PO 4X/DAY #40 tabs 03/26/23 [Rx Last Taken Unknown] Allergy/AdvReac Type Severity Reaction Status Date / Time clindamycin HCl AdvReac Swelling Verified 03/26/23 14:01 [From Cleocin] clindamycin palmitate HCl AdvReac Swelling Verified 03/26/23 14:01 [From Cleocin] clindamycin phosphate AdvReac Swelling Verified 03/26/23 14:01 [From Cleocin] Family History Mother Thyroid disorder Surgical History H/O plastic surgery History of facial surgery Previous section Social History household members: other details: treatment program current occupational status: unemployed Smoking Status: Current every day smoker tobacco type: cigarettes and e- cigarettes Electronic Cigarette Use: not used alcohol intake: current alcohol intake frequency: holidays/special occasions only substance use type: former substance user Date of last use: 09/2022 and methamphetamine what type of physical activity do you participate in: none seatbelt use: always do you feel safe at home: Yes ROS ROS ED ROS Narrative Dental pain. Review of Systems ROS Unobtainable: Denies due to encephalopathy Constitutional Constitutional ED: Denies chills or fever(s) Eyes Eyes: Denies blurry vision ENT ENT ED: Denies ear pain, rhinorrhea or sore throat Cardiovascular Cardiovascular: Denies chest pain Respiratory/Chest Respiratory/Chest: Denies cough or dyspnea Gastrointestinal Gastrointestinal: Denies abdominal pain Genitourinary Genitourinary ED: Denies dysuria or hematuria Musculoskeletal Musculoskeletal: Denies arthralgias Integumentary Denies abscess Neurologic Neurologic: Denies headache(s) Psychiatric Psychiatric: Denies anxiety Endocrine Endocrinology: Denies cold intolerance Hematologic/Lymphatic Hematologic/Lymphatic: Denies easy bleeding or easy bruising Allergic/Immunologic Allergic/Immunologic ED: Reports mouth swelling; Denies tongue swelling or urticaria EXAM Physical Exam Narrative Exam Narrative: 32-year-old female no acute distress. Vital signs stable and afebrile. H EENT exam multiple missing teeth. Lower jaw gum swelling. No abscess. Consistent with gingivitis. No trismus. Floor of her mouth is nontender nonswollen. No trouble swallowing or breathing. She has very severe dental decay and cavities. Both the upper and lower jaw. Posterior pharynx normal. Neck nontender. No lymphadenopathy. Lungs clear. Heart regular rhythm no murmur. Abdomen soft. Otherwise exam benign. Const Vital Signs: 03/26/23 14:00 Temperature 96.5 F L Temperature Source Temporal Pulse Rate 97 Respiratory Rate 18 Blood Pressure 101/64 Blood Pressure Mean 76 Pulse Ox 98 Oxygen Delivery Method Room Air Positive well nourished and well developed; Negative for obese, cachectic, contractures or unkempt General Appearance ED: well developed and NAD; Negative for unkempt, cachectic, contractures or pallor Nutritional Appearance: Negative for cachectic or obese HEENT Denies other HEENT Narrative: Both upper and lower jaw multiple missing teeth. Dental decay. Multiple cavities. Gingivitis. No abscess. No trismus. No trouble swallowing or breathing. No Conner's angina. Negative for trauma, tenderness or other Face and Sinus: sinuses nontender Mouth ED: Yes lips normal, Yes tongue normal, Yes salivary gland normal, No mouth trauma, Yes oral and palatal mucosa abnormal and No salivary gland abnormal Mouth: lips normal, tongue normal, salivary gland normal, No mouth trauma, oral and palatal mucosa abnormal and No salivary gland abnormal Teeth and Gingiva: abnormal tooth and associated gingiva, caries, gingiva abnormal, poor dentition and teeth discoloration Throat: posterior oropharynx normal Eyes PERRL and EOMs intact bilaterally General Eye ED: Negative for pale conjunctiva or scleral icterus Neck no lymphadenopathy, supple and no JVD General: normal visual inspection; Negative for anterior neck swelling, tenderness or submandibular swelling Lymph Lymphatic: no lymphadenopathy noted; Negative for lymphadenopathy Chest Wall inspection of chest normal and palpation of chest normal Chest: Negative for other Resp normal respiratory effort, no retractions and clear to auscultation bilaterally Cardio regular rate, regular rhythm, S1 normal heart sound, S2 normal heart sound and no murmurs Jugular Venous Distention: Negative for other Palpation: Negative for palpable S3 Rate: Negative for bradycardia Rhythm: Negative for abnormal rhythm GI normal to inspection, nondistended, normoactive bowel sounds, non-tender, non- distended and no masses Inspection: Negative for other Palpation: soft Bladder / Kidney Exam: No other Back/Spine no CVA tenderness General Back: Negative for CVA tenderness Cervical Spine: Negative for other Thoracic Spine / Upper Back: Negative for thoracic spinal tenderness, paraspinal muscle tenderness or paraspinal muscle spasm Extremity normal to inspection and no joint enlargement General Extremety ED: Negative for edema or other findings General Extremity: Negative for edema or other findings Neuro oriented x3, CN's II-XII intact bilaterally, moves all extremities and no focal motor deficits Sensorium / Orientation: alert, oriented to person, oriented to place and oriented to time; Negative for orientation impaired Motor Exam: strength 5/5 throughout Psych mental status grossly normal Appearance: Negative for unkempt Attitude: No agitated Mood & Affect: Negative for depressed, anxious or tearful Skin no rashes or lesions noted and no wounds General Skin Exam: Negative for pallor or other MDM MDM MDM Narrative Medical decision making narrative: 32-year-old female with significant dental decay, caries and gingivitis. She will call her insurance to get a dentist that takes her insurance which I believe is care source. Continue Motrin and Tylenol for pain. She will be written a prescription for penicillin VK 500 4 times daily for 10 days. Return if worse. History & Record Review Discussion w/independent historian: Patient Discharge Plan Triage Chief Complaint: Dental ED Provider: Ja Cortes Dx/Rx/DC Orders Clinical Impression: Chronic dental pain, Dental decay, Gingivitis Instructions: Understanding Gingivitis, ED Dental Pain, ED Dental Cavity Prescriptions: New penicillin V potassium 500 mg tablet 500 mg PO 4X/DAY Qty: 40 0RF Primary Care Provider: Bridgett Umana Referrals: Bridgett Umana MD [Primary Care Provider] - Activity Restrictions/Additional Instructions: Motrin and Tylenol for pain. Warm salt water gargling. Call your insurance and see what dentist will take that specific insurance so he can follow-up and get your teeth pulled/ You have cavities and infections in your gums. Penicillin 1 pill 4 times a day for 10 days. Disposition Disposition: Home, Self Care
[2023-03-26] MEDS: Penicillin Vk 250 MG Tablet 500 MG PO (14:24)
== END 2023-03-26 14:33 | disposition home or self-care (01) ==
PROVIDERS: Emergency Provider Emergency Medicine; PCP Internal Medicine; Visit Provider Emergency Medicine
DX: K02.9 Dental caries, unspecified (principal); F17.210 Nicotine dependence, cigarettes, uncomplicated; G89.29 Other chronic pain; K05.10 Chronic gingivitis, plaque induced; F17.290 Nicotine dependence, other tobacco product, uncomplicated
CPT/HCPCS: 99283

== ENCOUNTER 2023-04-05 03:06 | Emergency (ER) | payer MEDICAID, SELFPAY ==
[2023-04-05 03:06] VITALS: BP 121/87; PULSE 114; RESP 20; TEMP 36.4; O2SAT 97; BMI 25.0
--- NOTE | 2023-04-05 03:17 | EDS_ITS ---
HPI History of Present Illness Chief Complaint: Anxiety Informant: patient Onset/Context/Timing Onset: Today Timing: Intermittent Quality: Anxious Location: Generalized Worsened by: Nothing Relieved by: Nothing Narrative Narrative: Patient presents with anxiety that became worse tonight. Patient states she has a history of anxiety. Patient states it has been coming and going for the last couple years. Patient states it came on tonight and has been constant throughout the night. Patient denies any suicidal or homicidal ideations. Patient states nothing makes it better nothing makes it worse. Patient denies any drug use to me. However, nurse note reports that the patient had been using methamphetamines tonight. [facility] Medical History Anxiety Chronic osteomyelitis of maxilla Chronic ulcer of other specified site Hepatitis C Methamphetamine abuse Home Medications penicillin V potassium 500 mg tablet 500 mg PO 4X/DAY #40 tabs 03/26/23 [Rx Last Taken Unknown] Allergy/AdvReac Type Severity Reaction Status Date / Time clindamycin HCl AdvReac Swelling Verified 04/05/23 03:09 [From Cleocin] clindamycin palmitate HCl AdvReac Swelling Verified 04/05/23 03:09 [From Cleocin] clindamycin phosphate AdvReac Swelling Verified 04/05/23 03:09 [From Cleocin] Family History Mother Thyroid disorder Surgical History H/O plastic surgery History of facial surgery Previous section Social History household members: other details: treatment program current occupational status: unemployed Smoking Status: Current every day smoker tobacco type: cigarettes and e- cigarettes Electronic Cigarette Use: not used alcohol intake: current alcohol intake frequency: holidays/special occasions only substance use type: former substance user Date of last use: 09/2022 and methamphetamine what type of physical activity do you participate in: none seatbelt use: always do you feel safe at home: Yes ROS ROS ED Constitutional Constitutional ED: Denies chills or fever(s) Eyes Eyes: Denies blurry vision or change in vision ENT ENT ED: Denies rhinorrhea or sore throat Cardiovascular Cardiovascular: Denies chest pain or palpitations Respiratory/Chest Respiratory/Chest: Denies cough or dyspnea Gastrointestinal Gastrointestinal: Denies nausea or vomiting Genitourinary Genitourinary ED: Denies dysuria or hematuria Musculoskeletal Musculoskeletal: Denies back pain or neck pain Integumentary Denies abscess or rash Neurologic Neurologic: Denies headache(s) or weakness Psychiatric Psychiatric: Reports anxiety; Denies suicidal ideation or suicidal thoughts Allergic/Immunologic Allergic/Immunologic ED: Denies mouth swelling or urticaria EXAM Physical Exam Const Vital Signs: 04/05/23 03:06 Temperature 97.5 F L Temperature Source Temporal Pulse Rate 114 H Respiratory Rate 20 H Blood Pressure 121/87 H Blood Pressure Mean 98 Pulse Ox 97 Oxygen Delivery Method Room Air Positive well nourished and well developed General Appearance ED: well developed HEENT Reports moist mucous membranes Neck supple and no JVD Resp normal respiratory effort and clear to auscultation bilaterally Cardio regular rate, regular rhythm and no murmurs GI normal to inspection, nondistended, normoactive bowel sounds and non-tender Palpation: soft Extremity normal to inspection General Extremety ED: Negative for edema or tenderness General Extremity: Negative for edema Neuro oriented x3, CN's II-XII intact bilaterally and no sensory deficits noted Sensorium / Orientation: alert Motor Exam: strength 5/5 throughout Psych Activity / Motor Behavior: appropriate eye contact, fidgetting and restless Mood & Affect: anxious Thought Content: No suicidality and No homicidality Skin no rashes or lesions noted MDM MDM MDM Narrative Medical decision making narrative: Differential diagnosis includes generalized anxiety and substance abuse. Patient was given a dose of Benadryl here. Treatment and Re-Evaluation :: Patient states she is starting to feel better. Patient was instructed to follow-up with a primary care physician in 5 to 7 days. Patient was also given a referral for 180. Patient understands and is agreeable with plan. All questions were answered. Discharge Plan Triage Chief Complaint: Anxiety ED Provider: Louis Yu Dx/Rx/DC Orders Clinical Impression: Anxiety, Methamphetamine use Instructions: ED Anxiety Reaction Prescriptions: No Action penicillin V potassium 500 mg tablet 500 mg PO 4X/DAY Qty: 40 0RF Primary Care Provider: Bridgett Umana Referrals: Bridgett Umana MD [Primary Care Provider] - 5-7 Days [facility] [Non-Staff] - 5-7 Days Disposition Disposition: Home, Self Care
[2023-04-05] MEDS: DiphenhydrAMINE 25 MG Capsule PO (03:43)
[2023-04-05 05:06] VITALS: RESP 15
[2023-04-05 05:54] VITALS: BP 106/95; PULSE 91; RESP 18; O2SAT 97
== END 2023-04-05 05:55 | disposition home or self-care (01) ==
PROVIDERS: Emergency Provider Emergency Medicine; PCP Internal Medicine; Visit Provider Emergency Medicine
DX: F41.9 Anxiety disorder, unspecified (principal); F17.210 Nicotine dependence, cigarettes, uncomplicated; F17.290 Nicotine dependence, other tobacco product, uncomplicated
CPT/HCPCS: 99283

== ENCOUNTER 2023-04-06 01:07 | Emergency (ER) | payer MEDICAID, SELFPAY ==
[2023-04-06 01:08] VITALS: BP 117/89; PULSE 94; RESP 15; TEMP 36.3; O2SAT 97; BMI 24.7
--- NOTE | 2023-04-06 01:24 | EDS_ITS ---
HPI History of Present Illness Chief Complaint: Suicidal Informant: patient Narrative Narrative: Patient states that she does not feel good. When I asked her to define this she feels depressed and suicidal. Thoughts of taking pills. She has been having depression for 2 years. I asked her if she has seen anyone and she states she has been seeing a counselor. I asked her when she last saw counselor and she thinks it was about 4 years ago. She states she is not on any meds for this but then she states she is on hydroxyzine for this. But she does not know how long what dose when she took it or who prescribed it. She is also on penicillin because she has chronic problems with her teeth and she saw some unknown emergency department recently they placed her on penicillin. She states she has used drugs and methamphetamines but has not used for over a week. She was in here couple days ago with anxiety. She denies having suicidal thoughts then but then states she has had suicidal thoughts for a while. Her story is quite varied. She is denying any physical complaints. She did denies any attempts at hurting herself. [facility] Medical History Anxiety Chronic osteomyelitis of maxilla Chronic ulcer of other specified site Hepatitis C Methamphetamine abuse Home Medications penicillin V potassium 500 mg tablet 500 mg PO 4X/DAY #40 tabs 03/26/23 [Rx Last Taken Unknown] Allergy/AdvReac Type Severity Reaction Status Date / Time clindamycin HCl AdvReac Swelling Verified 04/05/23 03:09 [From Cleocin] clindamycin palmitate HCl AdvReac Swelling Verified 04/05/23 03:09 [From Cleocin] clindamycin phosphate AdvReac Swelling Verified 04/05/23 03:09 [From Cleocin] Family History Mother Thyroid disorder Surgical History H/O plastic surgery History of facial surgery Previous section Social History household members: other details: treatment program current occupational status: unemployed Smoking Status: Current every day smoker tobacco type: cigarettes and e- cigarettes Electronic Cigarette Use: not used alcohol intake: current alcohol intake frequency: holidays/special occasions only substance use type: former substance user Date of last use: 09/2022 and methamphetamine what type of physical activity do you participate in: none seatbelt use: always do you feel safe at home: Yes ROS ROS ED Constitutional Constitutional ED: Denies chills or fever(s) Eyes Eyes: Denies change in vision ENT ENT ED: Reports other Details: Currently being treated for dental infection and states she is feeling better. ; Denies rhinorrhea Cardiovascular Cardiovascular: Denies chest pain Respiratory/Chest Respiratory/Chest: Denies cough or dyspnea Gastrointestinal Gastrointestinal: Denies diarrhea, nausea or vomiting Musculoskeletal Musculoskeletal: Denies myalgias Integumentary Reports other Details: She denies a rash. But I note there is a slight rash mostly on her lower legs that almost look like hives. But she thinks its been there for a long time. She is not sure. It does not bother her. ; Denies rash Neurologic Neurologic: Denies headache(s) Psychiatric Psychiatric: Reports anxiety, depression, suicidal ideation and suicidal thoughts Hematologic/Lymphatic Hematologic/Lymphatic: Denies easy bleeding or easy bruising Allergic/Immunologic Allergic/Immunologic ED: Denies tongue swelling EXAM Physical Exam Narrative Exam Narrative: CONSTITUTIONAL: Patient is nontoxic in appearance. Breathing is normal. She does tend to sit and shake or move her arms and legs constantly. HEENT: No notable trauma. Mucous membranes moist. I do not see any acute swollen gums but she has multiple bad teeth. She has a scar on the left side of her face from prior infection that is been there a long time. EYES: No conjunctival injection. No proptosis. Pupils are about 2-1/2 mm and are reactive. NECK:No JVD. No stridor. CARDIOVASCULAR: Regular rate. Regular rhythm. No notable murmur. No JVD. RESPIRATORY: No respiratory distress. Breathing is unlabored. No wheezes. No rhonchi. No rales. No pain with a deep breath. No chest wall tenderness. GASTROINTESTINAL: Not distended. Bowel sounds are normal. No tenderness. No guarding. No rebound. No palpable mass. No bruit is heard. GENITOURINARY: No tenderness over the bladder. No CVA tenderness. MUSCULOSKELETAL: Atraumatic. No peripheral edema. NEUROLOGICAL: Patient is alert and oriented. But she seems a little bit distracted. She pauses before she answers every question and occasionally I have to repeat them. SKIN: No noted rashes. No diaphoresis. PSYCHIATRIC: Patient is anxious and hard to sit still. She admits to suicidal thoughts. She states she hears things but cannot hear what the voices say or the sounds are. She states she sees things but there are just flashes of light in the distance. This has been going on for a while but she cannot specify how long. Const Vital Signs: 04/06/23 01:08 04/06/23 02:08 04/06/23 03:00 Temperature 97.4 F L Temperature Source Oral Pulse Rate 94 Respiratory Rate 15 16 14 Blood Pressure 117/89 H Blood Pressure Mean 98 Pulse Ox 97 Oxygen Delivery Method Room Air Room Air MDM MDM MDM Narrative Medical decision making narrative: Patient CBC shows no acute abnormalities. Electrolytes showed mild elevation of the creatinine consistent with dehydration and decreased potassium. Methamphetamine commonly causes dehydration. She also admits to having anxiety and anxiety attacks. Hyperventilation can induce hypokalemia also. Her potassium will be replaced orally though. is negative Tox screen is positive for methamphetamines, ecstasy, and cannabinoids. Patient's potassium is low but she is asymptomatic. This is replaced orally. She has been up walking in the department without any difficulties. She is able to eat and drink. I believe she is medically cleared for psychiatric evaluation and admission if needed. Patient has been seen and evaluated by crisis. There contacting places about placement but there is no facility pending yet at this point. Lab Data Labs: Laboratory Results - last 24 hr 04/06/23 04/06/23 04/06/23 01:30 01:30 01:30 WBC 8.8 RBC 4.74 Hgb 14.2 Hct 38.5 MCV 81.2 MCH 30.0 MCHC 36.9 H RDW Std Deviation 33.3 L RDW Coeff of Natasha 11.5 L Plt Count 296 MPV 12.3 H Immature Gran % (Auto) 0.200 Neut % (Auto) 65.3 Lymph % (Auto) 22.4 School[place] % (Auto) 11.6 H Eos % (Auto) 0.3 Baso % (Auto) 0.2 Absolute Neuts (auto) 5.7 Absolute Lymphs (auto) 1.97 Nucleated RBC % 0 Sodium 136 Potassium 2.5 L* Chloride 100 Carbon Dioxide 25.0 Anion Gap 11 BUN 20 H Creatinine 1.20 H Estim Creat Clear Calc 57.16 Est GFR (MDRD) Af Amer 67 Est GFR (MDRD) Non-Af 55 L BUN/Creatinine Ratio 16.7 Glucose 114 H Calcium 10.1 Serum , Qual Urine Opiates Screen Urine Methadone Screen Ur Barbiturates Screen Ur Phencyclidine Scrn Ur Amphetamines Screen MDMA (Ecstasy) Screen U Benzodiazepines Scrn Urine Cocaine Screen U Cannabinoids Screen Ur Drug Screen Comment Ethyl Alcohol < 3.0 04/06/23 04/06/23 01:30 03:00 WBC RBC Hgb Hct MCV MCH MCHC RDW Std Deviation RDW Coeff of Natasha Plt Count MPV Immature Gran % (Auto) Neut % (Auto) Lymph % (Auto) Schoolcraft % (Auto) Eos % (Auto) Baso % (Auto) Absolute Neuts (auto) Absolute Lymphs (auto) Nucleated RBC % Sodium Potassium Chloride Carbon Dioxide Anion Gap BUN Creatinine Estim Creat Clear Calc Est GFR (MDRD) Af Amer Est GFR (MDRD) Non-Af BUN/Creatinine Ratio Glucose Calcium Serum , Qual NEGATIVE Urine Opiates Screen NEGATIVE Urine Methadone Screen NEGATIVE Ur Barbiturates Screen NEGATIVE Ur Phencyclidine Scrn NEGATIVE Ur Amphetamines Screen POSITIVE H MDMA (Ecstasy) Screen POSITIVE H U Benzodiazepines Scrn NEGATIVE Urine Cocaine Screen NEGATIVE U Cannabinoids Screen POSITIVE H Ur Drug Screen Comment Ethyl Alcohol Discharge Plan Triage Chief Complaint: Suicidal ED Provider: Hang Lopez Dx/Rx/DC Orders Clinical Impression: Depression with suicidal ideation, Methamphetamine abuse, MDMA abuse, Cannabis abuse Prescriptions: No Action penicillin V potassium 500 mg tablet 500 mg PO 4X/DAY Qty: 40 0RF Primary Care Provider: Bridgett Umana Referrals: Bridgett Umana MD [Primary Care Provider] - Disposition Disposition: Psychiatric Hospital or Unit
[2023-04-06 01:47] LABS: Absolute Lymphocyte Count 1.97 X10^3/uL (0.83-4.51); Absolute Neutrophil Count 5.7 X10^3/uL (2.0-7.7); Basophil# 0.02 X10^3/uL; Basophil% 0.2 % (0-1); Eosinophil# 0.03 X10^3/uL; Eosinophils% 0.3 % (0-5); Hematocrit 38.5 % (37-47); Hemoglobin 14.2 g/dL (12.0-15.0); Lymphocyte # 1.97 X10^3/ul (0.83-4.51); Lymphocyte % 22.4 % (19-41); Mean Corp Hgb Conc 36.9 g/dL (32-36); Mean Corpuscular Volume 81.2 fL (81-99); Mean Platelet Vol. 12.3 fl (6.2-12.0); Monocyte# 1.02 X10^3/uL; Monocyte% 11.6 % (0-10); NRBC Flagged by Analyzer 0 % (0-5); Neutrophil # 5.72 X10^3/uL (2.7-7.7); Neutrophil % 65.3 % (47-70); Platelet Count 296 K/mm3 (150-450); RBC Distribution Width CV 11.5 % (11.6-14.6); RBC Distribution Width SD 33.3 fl (35.1-43.9); Red Blood Count 4.74 M/mm3 (4.2-5.4); White Blood Count 8.8 K/mm3 (4.4-11.0)
[2023-04-06 01:59] LABS: Internal QC Validated? YES +Cl - CLEAR BKGD; Pregnancy, Serum, hCG Quali. NEGATIVE Negative
[2023-04-06 02:01] LABS: Alcohol, Blood (Medical)-Serum < 3.0 mg/dL
[2023-04-06 02:08] VITALS: RESP 16
[2023-04-06 02:16] LABS: Anion Gap 11 (5-15); BUN 20 mg/dL (7-18); BUN/Creat Ratio 16.7 RATIO (10-20); Calcium,Total 10.1 mg/dL (8.5-10.1); Chloride 100 mmol/L (98-107); EST Glomerular Filtration Rate 55 mL/min (>60); Est Glom Filt Rate - Afr Amer 67 mL/min (>60); Estimated Creatinine Clearance 57.16 ml/min; Glucose 114 mg/dL (74-106); Potassium 2.5 mmol/L (3.5-5.1); Sodium Level 136 mmol/L (136-145)
[2023-04-06] MEDS: Potassium Chloride Oral Tablet 20 MEQ 40 MEQ PO ×2 (02:54→07:53)
[2023-04-06 03:00] VITALS: RESP 14
[2023-04-06 03:39] LABS: Amphetamine Urine VISTA POSITIVE (<1000 ng/mL); Barbiturate Urine VISTA NEGATIVE (< 200 ng/mL); Benzodiazepine Urine VISTA NEGATIVE (< 200 ng/mL); Cocaine Urine VISTA NEGATIVE (< 300 ng/mL); Ecstacy Urine VISTA POSITIVE (< 500 ng/mL); Methadone Urine VISTA NEGATIVE (< 300 ng/mL); PCP Urine VISTA NEGATIVE (< 25 ng/mL); THC Urine VISTA POSITIVE (< 50 ng/mL); Vista UDS pH Range 5
--- NOTE | 2023-04-06 04:57 | ED.RN ---
CALLED [facility] AND FAXED PT INFO
--- NOTE | 2023-04-06 07:41 | ED.RN ---
JAY FROM [facility] CALLS. [facility] [place] CAN NOT ACCEPT PT UNTIL POTASSIUM IS REDRAWN. [phone] [phone]
[2023-04-06 07:45] VITALS: BP 120/80; PULSE 88; RESP 14; O2SAT 99
[2023-04-06 08:11] LABS: Potassium 2.8 mmol/L (3.5-5.1)
--- NOTE | 2023-04-06 09:05 | ED.RN ---
PT TALKING TO MOTHER ON PHONE. PT TEARFUL
[2023-04-06 11:10] VITALS: PULSE 80; RESP 16; O2SAT 96
--- NOTE | 2023-04-06 11:29 | CM.ED ---
Social Work SW contacted by Cathy with [facility] explaining [facility] still needs potassium update. SW faxed latest lab results to [facility]. Plan: [facility] reviewing for acceptance Xochilt CONNOLLY, KEENAN
--- NOTE | 2023-04-06 12:23 | ED.RN ---
Spoke with Avis from [facility]. K+ level must be above 3.0. Redraw ordered.
[2023-04-06 12:52] LABS: Potassium 3.2 mmol/L (3.5-5.1)
[2023-04-06] MEDS: hydrOXYzine PAM 25 MG Capsule PO (16:19)
[2023-04-06 16:24] VITALS: PULSE 75; RESP 16; TEMP 36.9; O2SAT 99
== END 2023-04-06 17:42 ==
PROVIDERS: Student in an Organized Health Care Education/Training Program; Emergency Provider Emergency Medicine; PCP Internal Medicine; Visit Provider Emergency Medicine
DX: R45.851 Suicidal ideations (principal); F15.10 Other stimulant abuse, uncomplicated; F41.9 Anxiety disorder, unspecified; F17.210 Nicotine dependence, cigarettes, uncomplicated; F32.A Depression, unspecified; F12.10 Cannabis abuse, uncomplicated; F17.290 Nicotine dependence, other tobacco product, uncomplicated
CPT/HCPCS: 80048; 80307; 82077; 84132; 84703; 85025; 87811; 99284

== ENCOUNTER 2023-11-11 16:46 | Emergency (ER) | payer MEDICAID, SELFPAY ==
[2023-11-11 16:48] VITALS: BP 100/75; PULSE 124; RESP 16; TEMP 36.1; O2SAT 96; BMI 22.3
--- NOTE | 2023-11-11 17:17 | EX.ED.VIS.PS ---
HPI HPI - Psych History of Present Illness Chief Complaint: Overdose Detail of Chief Complaint: Depressed and tried to overdose on Seroquel. Informant: patient and police/driver operator Onset/Context/Timing Onset: Today and Hours Context: Gradual Onset Timing: Continuous Current Severity: Moderate Maximum Severity: Moderate Associated Symptoms Associated Symptoms - Psych: Positive for Depressed and Suicidal Thoughts Specific plan (suicidal thought): Prescription overdose. Narrative Narrative: 33-year-old female history of anxiety and depression. Currently does not have custody of her 2 children EHR with one of their grandma's due to the patient's believe drug and mental health history. She said she was more depressed because all days and not having her children and states that she took a handful of Seroquel. She only believes that she took 10 or so. Nury lewis says possibly 30. Prior similar symptoms: Yes Recent Illness/Hospitalization: No PFSH PFSH Medical History Anxiety Chronic osteomyelitis of maxilla Chronic ulcer of other specified site Hepatitis C Methamphetamine abuse Home Medications penicillin V potassium 500 mg tablet 500 mg PO 4X/DAY #40 tabs 03/26/23 [Rx Last Taken Unknown] Allergy/AdvReac Type Severity Reaction Status Date / Time clindamycin HCl AdvReac Swelling Verified 04/05/23 03:09 [From Cleocin] clindamycin palmitate HCl AdvReac Swelling Verified 04/05/23 03:09 [From Cleocin] clindamycin phosphate AdvReac Swelling Verified 04/05/23 03:09 [From Cleocin] Family History Mother Thyroid disorder Surgical History H/O plastic surgery History of facial surgery Previous section Social History household members: other details: treatment program current occupational status: unemployed Smoking Status: Current every day smoker tobacco type: cigarettes and e-cigarettes Electronic Cigarette Use: not used alcohol intake: current alcohol intake frequency: holidays/special occasions only substance use type: former substance user Date of last use: 09/2022 and methamphetamine what type of physical activity do you participate in: none seatbelt use: always do you feel safe at home: Yes ROS ROS ED ROS Narrative No recent illness. Review of Systems ROS Unobtainable: Denies due to encephalopathy Constitutional Constitutional ED: Denies chills or fever(s) Eyes Eyes: Denies blurry vision ENT ENT ED: Denies ear pain Cardiovascular Cardiovascular: Denies chest pain Respiratory/Chest Respiratory/Chest: Denies cough or dyspnea Gastrointestinal Gastrointestinal: Denies abdominal pain Genitourinary Genitourinary ED: Denies dysuria or hematuria Musculoskeletal Musculoskeletal: Denies arthralgias Integumentary Denies abscess or Abrasions Neurologic Neurologic: Denies headache(s) Psychiatric Psychiatric: Denies anxiety or depression Endocrine Endocrinology: Denies polydipsia or polyphagia Hematologic/Lymphatic Hematologic/Lymphatic: Denies easy bleeding Allergic/Immunologic Allergic/Immunologic ED: Denies mouth swelling, tongue swelling or urticaria EXAM Physical Exam Narrative Exam Narrative: Well-appearing 33-year-old female. Vital signs stable afebrile. Pulse ox 96% on room air no hypoxia. Lying comfortably in bed. Sitter in the room. H EENT exam unremarkable atraumatic. Pupils round reactive light. Neck nontender. No lymphadenopathy. No trauma. Lungs clear to auscultation bilateral. Heart tachycardic rate about 150 no murmur. Chest wall and ribs nontender. Abdomen soft nontender. Moving all 4 extremities. No track hong on the arms. No edema. Back nontender. Neurologically she is awake and alert no focal motor deficits. Currently she is calm. She is not verbally or physically abusive at this time. Const Vital Signs: 11/11/23 16:48 Temperature 97.0 F L Temperature Source Temporal Pulse Rate 124 H Respiratory Rate 16 Blood Pressure 100/75 Blood Pressure Mean 83 Pulse Ox 96 Oxygen Delivery Method Room Air Positive well nourished and well developed; Negative for obese, cachectic, contractures or unkempt General Appearance ED: well developed and NAD; Negative for unkempt, cachectic, contractures or pallor Nutritional Appearance: Negative for cachectic or obese HEENT Reports moist mucous membranes normocephalic and atraumatic; Negative for trauma or tenderness Eyes PERRL and EOMs intact bilaterally General Eye ED: Negative for pale conjunctiva, scleral icterus or other Neck no lymphadenopathy, supple and no JVD General: Negative for tenderness Resp normal respiratory effort and clear to auscultation bilaterally Effort and Inspection: Negative for retractions Auscultation: Negative for rales, rhonchi, wheezes or diminished lung sounds Cardio S1 normal heart sound, S2 normal heart sound and no murmurs Palpation: Negative for other Rate: regular rate Rhythm: regular rhythm GI non-tender, non-distended and no masses Inspection: Negative for abdominal distention Auscultation: normoactive bowel sounds Palpation: soft; Negative for tender or guarding Bladder / Kidney Exam: No other Back/Spine no CVA tenderness General Back: Negative for CVA tenderness Cervical Spine: Negative for cervical spine tenderness Thoracic Spine / Upper Back: Negative for thoracic spinal tenderness Lumbar Spine / Lower Back: Negative for lumbar spinal tenderness Coccyx: Negative for other Extremity normal to inspection General Extremety ED: Negative for edema or tenderness General Extremity: Negative for edema Neuro oriented x3, CN's II-XII intact bilaterally and no sensory deficits noted Sensorium / Orientation: alert, oriented to person, oriented to place and oriented to time; Negative for orientation impaired, confused or lethargic Motor Exam: strength 5/5 throughout Psych mental status grossly normal, thought process normal, cooperative, affect normal, speech normal, activity/motor behavior normal and denies hallucinations; Negative for denies suicidal ideation Appearance: grossly normal; Negative for unkempt Attitude: calm, engaged, No withdrawn, No bizarre, No uncooperative, No evasive, No guarded and No belligerent Activity / Motor Behavior: appropriate eye contact Speech: normal speech Mood & Affect: depressed Thought Process: normal thought process Thought Content: suicidality Attention / Concentration: attention grossly intact Memory / Cognition: memory grossly intact Insight: insight good Judgement: judgement good Skin General Skin Exam: Negative for jaundice or pallor Lesions: no lesions Rashes: no rashes Trauma: Negative for abrasion Wounds: Negative for amputation MDM MDM MDM Narrative Medical decision making narrative: 33-year-old female history of drug abuse but says she has been sober for years. Does not have custody of her kids was more depressed today and attempted overdose on Seroquel. She will go to through an ED mental health evaluation. The normal ED mental health screening labs. She will be a crisis evaluation I suspect pink slip admission to a mental health facility. Repeat exam patient doing well at 6:41 PM. Awaiting crisis evaluation. Crisis evaluated the patient and does feel that she warrants admission and I would agree. They are working on placement. Repeat exam at 10:54 PM she is resting comfortably. She will be turned over to the overnight physician awaiting mental health placement. History & Record Review Discussion w/independent historian: Patient Additional record(s) reviewed:: Prior inpatient record, Prior outpatient record, Prior ED visit, Prior labs and No prior records Lab Data Attestation: I reviewed the patient's lab results. Lab results narrative: CBC normal. White count of 6. H&H 13 and 37. Platelets 212. Chemistries unremarkable gap of 5. Normal BUN and creatinine. Glucose 101. Urine tox screen positive for amphetamines and cannabis. Alcohol level negative Labs: Laboratory Results - last 24 hr 11/11/23 11/11/23 17:10 17:34 WBC 6.7 RBC 4.30 Hgb 13.3 Hct 37.4 MCV 87.0 MCH 30.9 MCHC 35.6 RDW Std Deviation 39.2 RDW Coeff of Natasha 12.4 Plt Count 212 MPV 11.4 Immature Gran % (Auto) 0.300 Neut % (Auto) 69.6 Lymph % (Auto) 23.3 Jackson % (Auto) 6.1 Eos % (Auto) 0.6 Baso % (Auto) 0.1 Absolute Neuts (auto) 4.7 Absolute Lymphs (auto) 1.57 Nucleated RBC % 0 Sodium 141 Potassium 3.7 Chloride 112 H Carbon Dioxide 24.0 Anion Gap 5 BUN 13 Creatinine 0.73 Estim Creat Clear Calc 83.75 Est GFR (MDRD) Af Amer 118 Est GFR (MDRD) Non-Af 97 BUN/Creatinine Ratio 17.8 Glucose 101 Calcium 8.7 Urine Opiates Screen NEGATIVE Urine Methadone Screen NEGATIVE Ur Barbiturates Screen NEGATIVE Ur Phencyclidine Scrn NEGATIVE Ur Amphetamines Screen POSITIVE H MDMA (Ecstasy) Screen NEGATIVE U Benzodiazepines Scrn NEGATIVE Urine Cocaine Screen NEGATIVE U Cannabinoids Screen POSITIVE H Ur Drug Screen Comment Ethyl Alcohol < 3.0 Discharge Plan Triage Chief Complaint: Overdose ED Provider: Ja Cortes Dx/Rx/DC Orders Clinical Impression: Suicidal overdose, Depression, History of drug abuse Prescriptions: No Action penicillin V potassium 500 mg tablet 500 mg PO 4X/DAY Qty: 40 0RF Primary Care Provider: Bridgett Umana Referrals: Bridgett Umana MD [Primary Care Provider] - Disposition Disposition: Psychiatric Hospital or Unit
[2023-11-11 17:23] LABS: Absolute Lymphocyte Count 1.57 X10^3/uL (0.83-4.51); Absolute Neutrophil Count 4.7 X10^3/uL (2.0-7.7); Basophil# 0.01 X10^3/uL; Basophil% 0.1 % (0-1); Eosinophil# 0.04 X10^3/uL; Eosinophils% 0.6 % (0-5); Hematocrit 37.4 % (37-47); Hemoglobin 13.3 g/dL (12.0-15.0); Lymphocyte # 1.57 X10^3/ul (0.83-4.51); Lymphocyte % 23.3 % (19-41); Mean Corp Hgb Conc 35.6 g/dL (32-36); Mean Corpuscular Hgb 30.9 pg (27.0-32.0); Mean Platelet Vol. 11.4 fl (6.2-12.0); Monocyte# 0.41 X10^3/uL; Monocyte% 6.1 % (0-10); NRBC Flagged by Analyzer 0 % (0-5); Neutrophil # 4.68 X10^3/uL (2.7-7.7); Neutrophil % 69.6 % (47-70); Platelet Count 212 K/mm3 (150-450); RBC Distribution Width CV 12.4 % (11.6-14.6); RBC Distribution Width SD 39.2 fl (35.1-43.9); White Blood Count 6.7 K/mm3 (4.4-11.0)
[2023-11-11 17:50] LABS: Alcohol, Blood (Medical)-Serum < 3.0 mg/dL
[2023-11-11 17:51] LABS: Anion Gap 5 (5-15); BUN 13 mg/dL (7-18); BUN/Creat Ratio 17.8 RATIO (10-20); Calcium,Total 8.7 mg/dL (8.5-10.1); Chloride 112 mmol/L (98-107); Creatinine, Serum 0.73 mg/dL (0.55-1.02); EST Glomerular Filtration Rate 97 mL/min (>60); Est Glom Filt Rate - Afr Amer 118 mL/min (>60); Estimated Creatinine Clearance 83.75 ml/min; Glucose 101 mg/dL (74-106); Potassium 3.7 mmol/L (3.5-5.1); Sodium Level 141 mmol/L (136-145)
[2023-11-11 17:56] LABS: Amphetamine Urine VISTA POSITIVE (<1000 ng/mL); Barbiturate Urine VISTA NEGATIVE (< 200 ng/mL); Benzodiazepine Urine VISTA NEGATIVE (< 200 ng/mL); Cocaine Urine VISTA NEGATIVE (< 300 ng/mL); Ecstacy Urine VISTA NEGATIVE (< 500 ng/mL); Methadone Urine VISTA NEGATIVE (< 300 ng/mL); PCP Urine VISTA NEGATIVE (< 25 ng/mL); THC Urine VISTA POSITIVE (< 50 ng/mL); Vista UDS pH Range 6
--- NOTE | 2023-11-11 18:10 | NURSING ---
CALLED CRISIS TO LET THEM KNOW PATIENT IS MEDICALLY CLEARED
[2023-11-11] MEDS: Acetaminophen 500 MG Tablet 1000 MG PO (20:19)
--- NOTE | 2023-11-12 00:55 | ED.RN ---
REPEAT BP OF 79/55. DR HUGHES NOTIFIED- INSTRUCTED TO SIT PATIENT UP IN BED, STIMULATE HER AWAKE AND TURN ON LIGHTS AND RETAKE BP. PT UNABLE TO STAY AWAKE D/T INGESTION OF MULTIPLE SEROQUEL REPEAT BP 89/66. CAP REFILL <3 SEC, SKIN IS PINK WARM AND DRY. DR HUGHES NOTIFIED.
[2023-11-12 00:58] VITALS: RESP 14
--- NOTE | 2023-11-12 00:59 | EKG12_ITS ---
Test Reason : MHC Blood Pressure : / mmHG Vent. Rate : 095 BPM Atrial Rate : 095 BPM P-R Int : 136 ms QRS Dur : 072 ms QT Int : 340 ms P-R-T Axes : 066 059 060 degrees QTc Int : 427 ms Normal sinus rhythm Normal ECG Confirmed by NIC AMIN, ASA ([id number]), city editor CARLENE STEWARD ([id number]) on 11/19/2023 9:27:28 AM Referred By: Confirmed By:ASA LUCERO MD
[2023-11-12 01:06] VITALS: BP 86/63; PULSE 76; RESP 14; O2SAT 99
[2023-11-12 01:30] LABS: Internal QC Validated? YES +Cl - CLEAR BKGD; Pregnancy, Urine Negative Negative
[2023-11-12 01:30] LABS: CPK Total, Creatine Kinase 25 U/L (26-192)
--- NOTE | 2023-11-12 02:16 | ED.RN ---
PT ACCEPTED AT [facility] [address] [phone] [address] ASIF GUILLERMO 7AM
[2023-11-12 04:16] VITALS: RESP 14
[2023-11-12 06:57] VITALS: BP 94/65; PULSE 83; RESP 16; O2SAT 96
== END 2023-11-12 08:20 ==
PROVIDERS: Emergency Provider Emergency Medicine; PCP Internal Medicine; Visit Provider Emergency Medicine
DX: T43.592A Poisoning by other antipsychotics and neuroleptics, intentional self-harm, initial encounter (principal); F17.210 Nicotine dependence, cigarettes, uncomplicated; F32.A Depression, unspecified; F17.290 Nicotine dependence, other tobacco product, uncomplicated; Z87.898 Personal history of other specified conditions
CPT/HCPCS: 80048; 80307; 80320; 81025; 82550; 85025; 87811; 93005; 99284; G0480